=== PATIENT | male | born 1960 | race Caucasian/White ===

== ENCOUNTER → 2020-01-25 15:15 | Outpatient (CLI) | payer OTHER, SELFPAY ==
--- NOTE | 2020-01-25 | DI.US.S_ITS ---
PROCEDURE: US RENAL COMPLETE INDICATIONS: CHRONIC KIDNEY DISEASE STAGE 4 TECHNIQUE: Real-time scanning was performed of the kidneys and bladder, with image documentation. COMPARISON: None. FINDINGS: Kidneys: Kidneys are normal in size. Right kidney measures 10.5 cm long; left kidney measures 9.1 cm long. Right renal cortical thickness is 0.8 cm; left renal cortical thickness is 1.2 cm. Renal cortical echotexture is normal. No hydronephrosis or nephrolithiasis. No suspicious solid mass lesions. At the upper right kidney there is an exophytic simple cyst measuring 2.7 cm and at the inferior right kidney an echogenic focus with posterior shadowing measures 4 x 5 mm, likely a nonobstructive small calculus. At the left mid kidney an additional 4 x 6 mm echogenic focus with posterior shadowing is also seen, nonobstructive, and likely a 2nd small calculus. Bladder: Pre-void bladder volume is 75 mL. Post-void residual is 24 mL. Pre-void images demonstrate no intraluminal masses or stones. On pre-void images, right but not the left ureteral jets are noted with color Doppler interrogation. (Of note, ureteral jets may not be detectable in up to 25% of cases due to insufficient differences in specific gravity between ureteral and bladder urine). Miscellaneous: No free pelvic fluid. Prevoid bladder volume is 75 cc with postvoid residual 24 cc. Note was made at the anterior prostate of a 1.9 x 2.1 x 1.6 cm area that is slightly heterogeneous and demarcated, possibly a prostate mass, with slight contour prominence along its anterolateral border. IMPRESSION: 1. No hydronephrosis or obstructive nephrolithiasis is found. Each kidney contains a shadowing nonobstructive probable calculus in the 5 mm range. 2. Possible prostate mass on the right, measuring 1.9 x 2.1 x 1.6 cm. This is a subtle finding, and is not definite. Urology consultation may be warranted. Prostate MR scanning could be utilized to more accurately assess this area if clinically desired. Dictated by: Marshall Andrea M.D. on 01/25/2020 at 16:41 Approved by: Marshall Andrea M.D. on 01/25/2020 at 16:47
== END ==
PROVIDERS: PCP Family Medicine; Referring Provider Student in an Organized Health Care Education/Training Program; Visit Provider Student in an Organized Health Care Education/Training Program
DX: N18.4 Chronic kidney disease, stage 4 (severe) (principal)
CPT/HCPCS: 76770

== ENCOUNTER → 2020-07-10 12:01 | Outpatient (CLI) | payer OTHER, SELFPAY ==
[2020-07-10 13:15] LABS: Creatinine Urine Random 109.7 mg/dL
[2020-07-10 13:27] LABS: Protein (Total) Urine Random 333 mg/dL (0-12); Protein Creatinine Ratio Urine 3.03 GRAM/24H
[2020-07-10 13:40] LABS: Hematocrit 34.6 % (41-53); Mean Corpuscular HGB Conc 34.6 % (30-36); Mean Corpuscular Hemoglobin 29.2 PG (26-34); Mean Corpuscular Volume 84.2 fL (80-100); Platelet Count 179 X10^3/uL (150-400); Red Cell Distribution Width 13.3 % (11.6-14.8); White Blood Cell Count 5.2 X10^3/uL (4.5-11.0)
[2020-07-10 14:42] LABS: BUN Creatinine Ratio 14.2 (6-22); Blood Urea Nitrogen 37 mg/dL (9-20); Calcium 8.6 mg/dL (8.4-10.2); Carbon Dioxide 21 mmol/L (22-32); Chloride 106 mmol/L (98-107); Estimated Glomerular Filt Rate 25.3 mL/min (>60); Glucose 264 mg/dL (80-110); HEMOLYSIS < 15 (0-50); Potassium 5.1 mmol/L (3.4-5.1); Sodium 138 mmol/L (137-145)
[2020-07-10 15:05] LABS: Prostate Specific Antigen 3.32 ng/mL (0.10-4.00)
== END ==
PROVIDERS: PCP Family Medicine; Referring Provider Student in an Organized Health Care Education/Training Program; Visit Provider Student in an Organized Health Care Education/Training Program
DX: N05.9 Unspecified nephritic syndrome with unspecified morphologic changes (principal); D70.9 Neutropenia, unspecified; R80.9 Proteinuria, unspecified; R97.20 Elevated prostate specific antigen [PSA]
CPT/HCPCS: 36415; 80048; 82570; 84153; 84156; 85027

== ENCOUNTER → 2020-08-14 15:02 | Outpatient (CLI) | payer OTHER, SELFPAY ==
[2020-08-14 16:30] LABS: BUN Creatinine Ratio 11.1 (6-22); Blood Urea Nitrogen 27 mg/dL (9-20); Calcium 8.3 mg/dL (8.4-10.2); Carbon Dioxide 19 mmol/L (22-32); Chloride 112 mmol/L (98-107); Estimated Glomerular Filt Rate 27.2 mL/min (>60); Glucose 170 mg/dL (80-110); HEMOLYSIS < 15 (0-50); Potassium 4.9 mmol/L (3.4-5.1); Sodium 141 mmol/L (137-145)
[2020-08-14 17:57] LABS: Creatinine Urine Random 133.1 mg/dL
[2020-08-14 18:10] LABS: Protein (Total) Urine Random 468 mg/dL (0-12); Protein Creatinine Ratio Urine 3.51 GRAM/24H
== END ==
PROVIDERS: PCP Family Medicine; Referring Provider Student in an Organized Health Care Education/Training Program; Visit Provider Student in an Organized Health Care Education/Training Program
DX: N05.9 Unspecified nephritic syndrome with unspecified morphologic changes (principal); R80.9 Proteinuria, unspecified
CPT/HCPCS: 36415; 80048; 82570; 84156

== ENCOUNTER → 2020-08-30 16:07 | Outpatient (CLI) | payer OTHER, SELFPAY ==
--- NOTE | 2020-08-30 16:09 | DI.RAD.S_ITS ---
PROCEDURE: XR KUB INDICATIONS: Kidney stones TECHNIQUE: One view of the abdomen acquired. COMPARISON: [facility], , KUB XRAY (1 VIEW ABDOMEN), 06/04/2011, 16:01. FINDINGS: Surgical changes and devices: None. Bowel: Bowel gas pattern is normal. Soft tissues: 5 millimeter linear calcification is seen in the region of right renal fossa. Small calcifications are noted in left lower pelvis likely represent phleboliths. Visualized solid organ contours appear normal in size. Bones: No suspicious bony lesions. IMPRESSION: Suggestion of 5 millimeter linear calcification in right renal fossa. Likely phleboliths seen in left lower pelvis. Dictated by: Brennan Bruce M.D. on 08/30/2020 at 16:38 Approved by: Brennan Bruce M.D. on 08/30/2020 at 16:45
== END ==
PROVIDERS: PCP Family Medicine; Referring Provider Specialist; Visit Provider Specialist
DX: N20.0 Calculus of kidney (principal)
CPT/HCPCS: 74018

== ENCOUNTER → 2020-12-11 14:08 | Outpatient (CLI) | payer OTHER, SELFPAY ==
--- NOTE | 2020-12-11 14:09 | DI.RAD.S_ITS ---
PROCEDURE: XR KUB INDICATIONS: Kidney stones TECHNIQUE: One view of the abdomen acquired. COMPARISON: [facility], CR, XR KUB, 08/30/2020, 16:10. FINDINGS: Surgical changes and devices: None. Bowel: Bowel gas pattern is normal. Moderate amount of stool noted in the right colon. Soft tissues: Two, small 1 x 3 millimeter calcifications project over the midpole of the left kidney and 4 millimeter calcification projects over the lower pole of the right kidney suspicious for renal stones.. Visualized solid organ contours appear normal in size. Bones: No suspicious bony lesions. IMPRESSION: 1. Possible 5 millimeter right renal stone stable compared to August 30, 2020. 2. Possible 3 millimeter left renal stones. 3. Moderate right colonic fecal loading. Dictated by: Tanya Enamorado MD, PhD on 12/11/2020 at 16:26 Approved by: Tanya Enamorado MD, PhD on 12/11/2020 at 16:29
[2020-12-11 18:34] LABS: Calcium 8.5 mg/dL (8.4-10.2); Uric Acid 6.3 mg/dL (3.5-8.5)
[2020-12-12 14:35] LABS: Calcium 8.4 mg/dL (8.6-10.2); Parathyroid Hormone, Intact 214 pg/mL (15-65)
== END ==
PROVIDERS: PCP Family Medicine; Referring Provider Specialist; Visit Provider Specialist
DX: N18.4 Chronic kidney disease, stage 4 (severe) (principal); N40.0 Benign prostatic hyperplasia without lower urinary tract symptoms; Z87.442 Personal history of urinary calculi
CPT/HCPCS: 36415; 74018; 82310; 83970; 84550

== ENCOUNTER → 2021-01-02 15:13 | Outpatient (CLI) | payer OTHER, SELFPAY ==
[2021-01-02 18:22] LABS: Prostate Specific Antigen 1.78 ng/mL (0.10-4.00)
== END ==
PROVIDERS: PCP Family Medicine; Referring Provider Specialist; Visit Provider Specialist
DX: N18.4 Chronic kidney disease, stage 4 (severe) (principal); Z87.442 Personal history of urinary calculi
CPT/HCPCS: 36415; 84153

== ENCOUNTER → 2021-03-11 13:42 | Outpatient (CLI) | payer OTHER, SELFPAY ==
--- NOTE | 2021-03-11 13:43 | DI.RAD.S_ITS ---
PROCEDURE: XR KUB INDICATIONS: Kidney stone TECHNIQUE: One view of the abdomen acquired. COMPARISON: [facility], CT, KIDNEY/ URETER/BLADDER, 05/23/2011, 12:44. [facility], CR, XR KUB, 12/11/2020, 14:16. [facility], CR, XR KUB, 08/30/2020, 16:10. FINDINGS: Surgical changes and devices: None. Bowel: Bowel gas pattern is normal. Soft tissues: Overall findings grossly similar to the prior exam with small nonobstructing kidney stones. Stone on the right measures 0.3 cm; and stones on the left x2 measure 0.3 cm. Similar small phleboliths in the pelvis. No suspicious abdominal calcifications. Visualized solid organ contours appear normal in size. Bones: No suspicious bony lesions. IMPRESSION: Suspect small nonobstructing kidney stones bilaterally. Overall findings similar to the prior exam. If clinically indicated follow-up CT KUB could be performed. Dictated by: Nasim Lim M.D. on 03/11/2021 at 14:22 Approved by: Nasim Lim M.D. on 03/11/2021 at 14:25
== END ==
PROVIDERS: PCP Family Medicine; Referring Provider Specialist; Visit Provider Specialist
DX: N20.0 Calculus of kidney (principal)
CPT/HCPCS: 74018

== ENCOUNTER → 2021-05-14 14:39 | Outpatient (CLI) | payer OTHER, SELFPAY ==
[2021-05-14 15:21] LABS: Hematocrit 37.6 % (41-53); Hemoglobin 12.9 g/dL (13.5-17.5)
[2021-05-14 15:25] LABS: BUN Creatinine Ratio 10.6 (6-22); Blood Urea Nitrogen 35 mg/dL (9-20); Calcium 8.8 mg/dL (8.4-10.2); Carbon Dioxide 26 mmol/L (22-32); Chloride 100 mmol/L (98-107); Estimated Glomerular Filt Rate 19.2 mL/min (>60); HEMOLYSIS < 15 (0-50); Sodium 130 mmol/L (137-145)
[2021-05-14 15:37] LABS: Potassium 5.7 mmol/L (3.4-5.1)
[2021-05-14 15:40] LABS: Glucose 586 mg/dL (80-110)
[2021-05-14 17:14] LABS: Creatinine Urine Random 62.5 mg/dL
[2021-05-14 17:35] LABS: Protein (Total) Urine Random 787 mg/dL (0-12); Protein Creatinine Ratio Urine 12.59 GRAM/24H
[2021-05-15 08:43] LABS: Parathyroid Hormone Int 138 pg/mL (15-65)
== END ==
PROVIDERS: PCP Family Medicine; Referring Provider Student in an Organized Health Care Education/Training Program; Visit Provider Student in an Organized Health Care Education/Training Program
DX: N05.9 Unspecified nephritic syndrome with unspecified morphologic changes (principal); D64.9 Anemia, unspecified; N25.81 Secondary hyperparathyroidism of renal origin; R80.9 Proteinuria, unspecified
CPT/HCPCS: 36415; 80048; 82570; 83970; 84156; 85014; 85018

== ENCOUNTER → 2021-05-29 14:33 | Outpatient (CLI) | payer OTHER, SELFPAY ==
[2021-05-29 15:22] LABS: BUN Creatinine Ratio 11.9 (6-22); Blood Urea Nitrogen 39 mg/dL (9-20); Calcium 8.4 mg/dL (8.4-10.2); Carbon Dioxide 26 mmol/L (22-32); Chloride 107 mmol/L (98-107); Estimated Glomerular Filt Rate 19.3 mL/min (>60); Glucose 229 mg/dL (80-110); HEMOLYSIS < 15 (0-50); Potassium 4.6 mmol/L (3.4-5.1); Sodium 136 mmol/L (137-145)
== END ==
PROVIDERS: PCP Family Medicine; Referring Provider Student in an Organized Health Care Education/Training Program; Visit Provider Student in an Organized Health Care Education/Training Program
DX: N05.9 Unspecified nephritic syndrome with unspecified morphologic changes (principal)
CPT/HCPCS: 36415; 80048

== ENCOUNTER → 2021-07-10 13:16 | Outpatient (CLI) | payer OTHER, SELFPAY ==
[2021-07-10 13:56] LABS: Hematocrit 30.3 % (41-53); Hemoglobin 10.7 g/dL (13.5-17.5)
[2021-07-10 14:40] LABS: BUN Creatinine Ratio 11.1 (6-22); Blood Urea Nitrogen 40 mg/dL (9-20); Calcium 7.8 mg/dL (8.4-10.2); Carbon Dioxide 21 mmol/L (22-32); Chloride 104 mmol/L (98-107); Estimated Glomerular Filt Rate 17.3 mL/min (>60); Glucose 391 mg/dL (80-110); HEMOLYSIS < 15 (0-50); Potassium 4.6 mmol/L (3.4-5.1); Sodium 134 mmol/L (137-145)
[2021-07-11 08:37] LABS: Parathyroid Hormone Int 180 pg/mL (15-65)
== END ==
PROVIDERS: PCP Family Medicine; Referring Provider Student in an Organized Health Care Education/Training Program; Visit Provider Student in an Organized Health Care Education/Training Program
DX: N05.9 Unspecified nephritic syndrome with unspecified morphologic changes (principal); D64.9 Anemia, unspecified; N25.81 Secondary hyperparathyroidism of renal origin
CPT/HCPCS: 36415; 80048; 83970; 85014; 85018